=== PATIENT | male | born 1975 | race Caucasian/White ===

== ENCOUNTER → 2017-05-17 | Outpatient (CLI) | payer OTHER ==
--- NOTE | 2017-05-17 09:41 | XR ---
EXAMINATION TYPE: XR elbow complete RT DATE OF EXAM: 05/17/2017 CLINICAL HISTORY: On and off pain for one year. TECHNIQUE: Frontal, lateral and oblique images of the right elbow are obtained. COMPARISON: None FINDINGS: There is no acute fracture/dislocation evident in the right elbow. No abnormal fat pad si gns are seen. The overlying soft tissue appears unremarkable. IMPRESSION: Unremarkable study.
== END | disposition home or self-care (01) ==
LOC: RADXRYALE 09:08
PROVIDERS: ATTEND Internal Medicine
DX: M25.521 Pain in right elbow (principal)

== ENCOUNTER 2020-10-02 08:34 | Day surgery (SDC) | payer OTHER ==
[2020-09-30 11:39] VITALS: BMI 27.2
[~2020-10-02 08:34] MED LIST: LACTATED RINGERS 1,000 ML IV SCH; LIDOCAINE 1% (10MG/ML) FOR IV START INTRADERMA PRN
[2020-10-02 09:04] VITALS: TEMP 97
[2020-10-02] MEDS ORDERED: PROPOFOL 10 MG/ML 20 ML VIAL IV ONE (09:05)
[2020-10-02] MEDS ORDERED: MIDAZOLAM 2 MG/2 ML VIAL ONE (09:05)
[2020-10-02] MEDS ORDERED: fentaNYL (PF) 50 MCG/ML 2 ML AMP ONE (09:05)
[2020-10-02] MEDS ORDERED: LIDOCAINE 1% INJ 10MG/ML (20 ML MDV) ONE (09:05)
--- NOTE | 2020-10-02 09:58 | P.PCN ---
Date of Procedure: 10/02/20 Description of Procedure: Brief history: Patient is a pleasant 45-year-old male presenting for outpatient esophagogastroduodenoscopy for evaluation of esophageal dysphagia and colonoscopy for evaluation of diarrhea. Patient reports intermittent difficulty swallowing. Generally occurring in the proximal esophagus. Predominantly to solids. Patient is not on any PPI or antihistamine therapy. Previously he had some loose bowel movements but reports that this is resolved. He does report a prior history of colonoscopy with polypectomy. Procedure performed: Esophagogastroduodenoscopy with biopsy Colonoscopy with biopsy Estimated blood loss: Minimal. Preoperative diagnosis: Esophageal dysphagia, diarrhea, he does report a remote history of colonoscopy and does state he has had colon polyps in the past Anesthesia: MAC Procedure: After informed consent was obtained from the patient was brought into the endoscopy unit and IV sedation was administered by anesthesia under continuous monitoring. Initially upper endoscopy was done. The Olympus GF 190 video endoscope was inserted into the mouth and esophagus intubated without any difficulty and was gradually advanced into the stomach and duodenum and carefully examined. The bulb and second part of the duodenum appeared normal, with biopsies taken. The scope was then withdrawn into the stomach adequately insufflated with air and upon careful examination the antrum and body, cardia and fundus appeared normal, except for some mild punctate erythema in the antrum and body suggestive of mild gastritis with biopsies taken. The scope was then withdrawn into the esophagus. The GE junction was located at 37 cm to the incisors. It appeared regular with no erythema erosions or ulcerations. Rest of the esophagus appeared normal, with biopsies of the lower esophagus and midesophagus to. Patient tolerated the procedure well. At this time the patient continued to remain sedation. Initial digital rectal examination was normal. Olympus CF 190 video colonoscope was then inserted into the rectum and gradually advanced to the cecum without any difficulty. Careful examination was performed as the scope was gradually being withdrawn. The prep was excellent. The cecum, ascending colon, transverse colon, descending colon, sigmoid colon and rectum appeared normal with biopsies taken of the right left colon and a normal-appearing terminal ileum. 3 diminutive polyps measuring 1-2 mm in size removed from the transverse colon, slight flexure and descending colon with cold forcep polypectomy. Pedunculated 8 mm sigmoid colon polyp removed with hot snare polypectomy. . Retroflexion was performed in the rectum and no lesions were noted, Low-grade internal hemorrhoids seen. Patient tolerated the procedure well. Impression: 1. Mild gastritis. Biopsies of the duodenum, antrum and body, lower esophagus and midesophagus. 2. Pedunculated sigmoid polyp removed with hot snare polypectomy. Diminutive polyps removed from the transverse colon, splenic flexure and descending colon with cold forcep polypectomy. Random biopsies taken of a normal-appearing right and left colon as well as a normal-appearing terminal ileum. Internal hemorrhoids. Recommendations: Findings of this examination were discussed with the patient as well as Cullen Peña. Okay to resume diet. Okay to resume medications. Await pathology from biopsies and polypectomy. Recommend repeat colonoscopy in 5 years for history of colon polyps pending pathology from polypectomies. Patient will be given a trial of omeprazole 20 mg daily for esophageal dysphagia, he has also been instructed to try daily antihistamine if no relief with PPI. Follow up in the GI clinic as needed.
[2020-10-02 10:12] VITALS: BP 118/83; PULSE 85; RESP 20
== END 2020-10-02 11:06 | disposition home or self-care (01) ==
LOC: ORWHC2ENDO 08:34
PROVIDERS: ATTEND Internal Medicine
DX: Z86.010 Personal history of colon polyps (principal); Z90.89 Acquired absence of other organs; Z98.890 Other specified postprocedural states; F17.200 Nicotine dependence, unspecified, uncomplicated; Z88.0 Allergy status to penicillin; K29.70 Gastritis, unspecified, without bleeding; K20.90 Esophagitis, unspecified without bleeding; D12.3 Benign neoplasm of transverse colon; K64.8 Other hemorrhoids
CPT/HCPCS: 88305; 45380; 45385; 43239; J2250; J2001; J3010; J2704

== ENCOUNTER → 2024-05-10 | Outpatient (CLI) | payer BC ==
--- NOTE | 2024-05-10 14:29 | XR ---
EXAMINATION TYPE: XR chest 2V DATE OF EXAM: 05/10/2024 2:23 PM COMPARISON: None. CLINICAL INDICATION: Male, 48 years old with history of R042 HEMOPTYSIS, TECHNIQUE: Frontal and lateral views of the chest are obtained. FINDINGS: Suspect chronic emphysematous change with left basilar linear scarring and/or atelectasis. Right lung is clear. The cardiac silhouette size is within normal limits. The osseous structures are intact. IMPRESSION: Chronic emphysematous change with mild left basilar linear scarring and atelectasis. If s ymptoms of hemoptysis persist further investigation with CT exam may be warranted. [facility], , 05/10/2024 2:27 PM
== END | disposition home or self-care (01) ==
LOC: RADXRYALE 14:15
PROVIDERS: ATTEND Internal Medicine
DX: J98.4 Other disorders of lung (principal); R04.2 Hemoptysis; J98.11 Atelectasis; J43.0 Unilateral pulmonary emphysema [MacLeod's syndrome]
CPT/HCPCS: 71046

== ENCOUNTER → 2024-05-18 | Outpatient (CLI) | payer BC ==
--- NOTE | 2024-05-18 18:59 | CT ---
EXAMINATION TYPE: CT chest w con DATE OF EXAM: 05/18/2024 6:52 PM COMPARISON: Chest radiograph from same day. 05/10/2024. CLINICAL INDICATION: Male, 48 years old with history of J44.9 CHRONIC OBSTRUCTIVE PULMONA R04.2 HEMOP TYSIS; PHH, Breathing issues and lung issues for 2 months. TECHNIQUE: Multiple axial images were obtained through the chest. Sagittal and coronal reformats were created for review. MIP was performed on a separate workstation. Contrast used:100ml mL of Isovue 300 with IV Contrast (None if empty) Oral contrast used: (None if empty) CT DLP: 456.4 mGycm, Automated exposure control for dose reduction was used. FINDINGS: LUNGS/ PLEURA: No focal consolidation, pneumothorax or pleural effusion. AIRWAY: Patent and unremarkable. HEART: Size within normal limits MEDIASTINUM: VASCULATURE: No aortic aneurysm. MUSCULOSKELETAL: No acute osseous abnormalities SOFT TISSUES/LYMPH NODES: Unremarkable. LOWER NECK: No significant findings. UPPER ABDOMEN: Diffuse low-attenuation to the liver parenchyma. IMPRESSION: 1. No evidence for acute process. No suspicious pulmonary nodules. No finding to explain patient's p ain symptoms. 2. Hepatic steatosis. Follow up recommendations for incidental pulmonary nodules, if there are any, are per [employer] or [employer]. [email or web address]://radiopaedia.org/articles/bwnugcbgoa-[email or web address]?lang=us [email or web address], , 05/18/2024 6:56 PM
== END | disposition home or self-care (01) ==
LOC: RADCTMAIN 17:13
PROVIDERS: ATTEND Internal Medicine
DX: J44.9 Chronic obstructive pulmonary disease, unspecified (principal); R04.2 Hemoptysis; K76.0 Fatty (change of) liver, not elsewhere classified
CPT/HCPCS: 71260; Q9967